=== PATIENT | female | born 1960 | race Caucasian/White ===

== ENCOUNTER 2017-08-10 16:37 | Emergency (ER) | payer OTHER, BC ==
[2017-08-10 16:41] VITALS: BP 121/79; PULSE 62; RESP 16; TEMP 98.8; O2SAT 98
[2017-08-10] MEDS ORDERED: Naproxen 500 MG TAB PO STA (17:46)
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
[2017-08-10] MEDS ORDERED: Naproxen 500 MG TAB PO ONE (18:05)
--- NOTE | 2017-08-11 10:25 | RAD ---
PROCEDURE: Cervical Spine Radiographs. HISTORY: Pain. COMPARISON: None. FINDINGS: BONES: Alignment maintained. No fracture. Dens IntactVertebral bodies maintained in height. Status post anterior fusion C6 and C7 vertebrae. Normal alignment maintained. . The atlantoaxial articulation and odontoid process are intact. DISC SPACES: C6-7 disc space has been fused. Remaining disc spaces are maintained in height SOFT TISSUES: Normal. No prevertebral soft tissue swelling. OTHER FINDINGS: None. IMPRESSION: No acute fracture. Status post anterior fixation C6-7.
== END 2017-08-10 19:58 | disposition home or self-care (01) ==
LOC: H.ER 16:37
DX: M54.2 Cervicalgia (principal); V43.62XA Car passenger injured in collision with other type car in traffic accident, initial encounter; Y92.410 Unspecified street and highway as the place of occurrence of the external cause; I10 Essential (primary) hypertension